=== PATIENT | female | born 1985 | race Asian ===

== ENCOUNTER 2016-11-22 15:48 | Emergency (ER) | payer BC ==
[~2016-11-22] VITALS: Ht 160 cm; Wt 57.4 kg
[~2016-11-22 15:48] MED LIST: PRENTAB26 PO
[2016-11-22 15:51] VITALS: Ht 160 cm; Wt 57.4 kg
[2016-11-22] MEDS ORDERED: ALUMINUM/MAGNESIUM SUSP 30 ML UDC PO STA (16:55)
--- NOTE | 2016-11-22 17:06 | EMERGENCY ROOM VISIT NOTE ---
History Report prepared by Cris: Lawrence Reed Under the Supervision of: Dr. Calvin River D.O. First contact with patient: 16:46 Chief Complaint: REFERRED BY DOCTOR Stated Complaint: CHEST PAIN, THROAT DISCOMFORT History of Present Illness The patient is a 31 year old female who presents to the Emergency Room with complaints of persistent discomfort in her throat for the past four days. She describes that discomfort as feeling like she is 'wearing a tight scarf.' She notes that it feels tight and swollen. The patient notes that she had cold-like symptoms for two weeks including cough, mucus production, sore throat and body aches. Starting today, the patient complained of chest pain that was coming and going. She describes it as an intense, sharp discomfort on her left side. She also complains of a low-grade fever and a stiff neck. The patient was at a walk- in clinic earlier today who recommended she present to the ED for further evaluation. She is currently prescribed Amoxicillin and Prednisone. She denies difficulty swallowing, abdominal pain, or back pain at this time. She notes that her son is currently in pre-school where Mumps and Pneumonia are currently going around. Source of History: patient Onset: four days Position: throat Quality: other (tight and swollen) Associated Symptoms: + chest pain, + cough, + fevers, + neck pain (stiff neck), + sorethroat, No abdominal pain, No back pain Note: Other associated symptoms: mucus production, body aches Denies: difficulty swallowing Review of Systems See HPI for pertinent positives & negatives. A total of 10 systems reviewed and were otherwise negative. Past Medical & Surgical Medical Problems: (1) Gestational diabetes (2) Lyme disease Family History FH: cancer Social History Smoking Status: Current Every Day Smoker Alcohol Use: occasionally Marital Status: Housing Status: lives with family Occupation Status: unemployed Current/Historical Medications Scheduled Amoxicillin (Amoxil), 875 MG PO BID Multivitamin (Multivitamin), 1 TAB PO DAILY Prednisone (Prednisone), 20 MG PO UD Allergies Coded Allergies: Shellfish Allergy (Unverified Allergy, Intermediate, HIVES, 12/11/14) Morphine (Unverified Allergy, Mild, Itchiness, 11/22/16) Uncoded Allergies: RED DYE #40 (Allergy, Intermediate, Severe Rash, 11/22/16) Physical Exam Vital Signs Date Time Temp Pulse Resp B/P Pulse Ox O2 Delivery O2 Flow Rate FiO2 11/22/16 23:04 37.2 75 18 122/78 99 11/22/16 23:04 75 18 122/78 99 Room Air 11/22/16 21:33 75 18 11/22/16 21:28 138/96 99 11/22/16 21:22 72 11/22/16 20:58 119/85 11/22/16 20:39 71 18 97 11/22/16 20:34 67 18 11/22/16 20:28 136/94 11/22/16 20:04 68 16 99 11/22/16 19:59 123/85 11/22/16 19:48 67 10 98 11/22/16 19:28 113/89 11/22/16 19:18 65 17 99 11/22/16 18:58 123/84 11/22/16 18:48 68 20 98 11/22/16 18:30 67 15 118/84 98 Room Air 11/22/16 18:28 118/84 11/22/16 18:18 71 16 97 11/22/16 18:00 66 16 117/79 98 Room Air 11/22/16 17:59 117/79 11/22/16 17:48 69 18 97 11/22/16 17:18 74 18 99 11/22/16 17:13 76 11/22/16 17:11 76 17 129/87 100 Room Air 11/22/16 17:10 129/87 11/22/16 17:09 100 Room Air 11/22/16 15:51 37.2 86 20 131/86 99 Room Air Physical Exam GENERAL: Patient is awake alert in no acute distress patient is resting comfortably and showing no signs of anxiety EYES: The conjunctivae are clear. The pupils are round and reactive. EARS, NOSE, MOUTH AND THROAT: The nose is without any evidence of any deformity. Mucous membranes are moist tongue is midline NECK: No tenderness over trachea or thyromegaly. No significant cervical adenopathy or salivary gland swelling. RESPIRATORY: Normal respiratory effort is noted there is no evidence of wheezing rhonchi or rales CARDIOVASCULAR: Regular rate and rhythm noted there no murmurs rubs or gallops normal S1 normal S2 GASTROINTESTINAL: The abdomen is soft. Bowel sounds are present in all quadrants. Abdomen is nontender MUSCULOSKELETAL/EXTREMITIES: There is no evidence of gross deformity full range of motion is noted in the hips and shoulders SKIN: There is no obvious evidence of any rash. There are no petechiae, pallor or cyanosis noted. NEUROLOGIC: Patient is awake alert and oriented x3 strength is symmetric patellar reflexes are 2+ bilaterally Medical Decision & Procedures ER Provider Diagnostic Interpretation: Radiology results as stated below per my review and radiologist interpretation: SOFT TISSUE NECK RADIOGRAPHS CLINICAL HISTORY: Sore throat. COMPARISON STUDY: No previous studies for comparison. FINDINGS: The epiglottis is normal. Prevertebral soft tissues are on remarkable. There may be mild enlargement of the lingual tonsils and adenoids. IMPRESSION: 1. Normal upper glottis. 2. Suspected mild enlargement of the tonsils and adenoids. Electronically signed by: Rashid Shah M.D. 11/22/2016 6:03 PM Dictated Date/Time: 11/22/2016 6:02 PM CHEST 2 VIEWS ROUTINE CLINICAL HISTORY: Chest pain. COMPARISON STUDY: Chest radiograph July 03, 2016. FINDINGS: Lung volumes are normal. Lungs are clear. There is no pneumothorax or pleural effusion. Cardiac size is normal. Mediastinal contours are normal. There is no evidence of pulmonary edema. IMPRESSION: No acute cardiopulmonary findings. Electronically signed by: Rashid Shah M.D. 11/22/2016 6:02 PM Dictated Date/Time: 11/22/2016 6:02 PM Laboratory Results 11/22/16 17:07 Red Blood Count 4.54, Mean Corpuscular Volume 89.9, Mean Corpuscular Hemoglobin 31.7, Mean Corpuscular Hemoglobin Concent 35.3, Mean Platelet Volume 11.2 11/22/16 17:07 Test 11/22/16 17:07 11/22/16 17:11 11/22/16 17:15 11/22/16 20:12 White Blood Count 4.74 K/uL (4.8-10.8) Red Blood Count 4.54 M/uL (4.2-5.4) Hemoglobin 14.4 g/dL (12.0-16.0) Hematocrit 40.8 % (37-47) Mean Corpuscular Volume 89.9 fL (80-100) Mean Corpuscular Hemoglobin 31.7 pg (25-34) Mean Corpuscular Hemoglobin Concent 35.3 g/dl (32-36) Platelet Count 165 K/uL (130-400) Mean Platelet Volume 11.2 fL (7.4-10.4) RDW Standard Deviation 39.5 fL (36.4-46.3) RDW Coefficient of Variation 11.9 % (11.5-14.5) Neutrophils % (Manual) 69.6 % Lymphocytes % (Manual) 18.8 % Variant Lymphocytes % (manual) 10.7 % Monocytes % (Manual) 0.9 % Neutrophils # (Manual) 3.30 K/uL (1.4-6.5) Total Absolute Neutrophils 3.30 K/uL (1.4-6.5) Lymphocytes # (Manual) 0.89 K/uL (1.2-3.4) Absolute Variant Lymphocytes 0.51 K/uL Total Absolute Lymphocytes 1.40 K/uL (1.2-3.4) Monocytes # (Manual) 0.04 K/uL (0.11-0.59) Red Blood Cell Morphology Unremarkable Erythrocyte Sedimentation Rate 25 mm/hr (0-21) Prothrombin Time 10.5 SECONDS (9.0-12.0) Prothromb Time International Ratio 1.0 (0.9-1.1) Activated Partial Thromboplast Time 30.3 SECONDS (21.0-31.0) Partial Thromboplastin Ratio 1.2 Anion Gap 7.0 mmol/L (3-11) Est Creatinine Clear Calc Drug Dose 82.0 ml/min Estimated GFR () 109.7 Estimated GFR (Non- 94.6 BUN/Creatinine Ratio 18.7 (10-20) Calcium Level 8.9 mg/dl (8.5-10.1) Magnesium Level 2.2 mg/dl (1.8-2.4) Total Bilirubin 0.3 mg/dl (0.2-1) Aspartate Amino Transf (AST/SGOT) 14 U/L (15-37) Alanine Aminotransferase (ALT/SGPT) 30 U/L (12-78) Alkaline Phosphatase 50 U/L (45-117) Total Creatine Kinase 95 U/L (26-192) Creatine Kinase MB 2.0 ng/ml (0.5-3.6) Creatine Kinase MB Ratio 2.1 (0-3.0) C-Reactive Protein < 0.29 mg/dl (0-0.29) Total Protein 8.3 gm/dl (6.4-8.2) Albumin 4.2 gm/dl (3.4-5.0) Globulin 4.1 gm/dl (2.5-4.0) Albumin/Globulin Ratio 1.0 (0.9-2) Thyroid Stimulating Hormone (TSH) 0.297 uIu/ml (0.300-4.500) Free Thyroxine 1.19 ng/dl (0.80-1.60) Human Chorionic Gonadotropin, Qual NEG (NEG) Bedside D-Dimer 117 ng/mlFEU (0-450) Urine Color YELLOW Urine Appearance CLEAR (CLEAR) Urine pH 5.5 (4.5-7.5) Urine Specific [place] 1.013 (1.000-1.030) Urine Protein NEG (NEG) Urine Glucose (UA) TRACE (NEG) Urine Ketones NEG (NEG) Urine Occult Blood NEG (NEG) Urine Nitrite NEG (NEG) Urine Bilirubin NEG (NEG) Urine Urobilinogen NEG (NEG) Urine Leukocyte Esterase NEG (NEG) Bedside Troponin I 0.000 ng/ml (0-0.045) Laboratory results per my review. Medications Administered Medications (Trade) Dose Ordered Sig/Irma Route Start Time Stop Time Status Last Admin Dose Admin Al Hydroxide/Mg Hydroxide (Maalox Susp) 30 ml NOW STAT PO 11/22/16 16:55 11/22/16 16:58 DC 11/22/16 17:14 30 ML ECG Indication: chest pain Rate (beats per minute): 77 Rhythm: normal sinus Findings: T-wave inversion (Anterior), no ectopy Comparison ECG Date: no prior available Change: Second EKG: Normal sinus rhythm with a rate of 86 no ectopy, persistence of anterior t-wave inversion noted. ED Course 1646: The patient was evaluated in room A2. A complete history and physical examination were performed. 1654: Ordered Maalox Susp 30 ml PO. 1950: At this time, I reevaluated the patient and she was resting. 2104: At this time, I discussed the patient's case with Dr. Pineda - Hospitalist [facility] and he agreed to accept the patient for further evaluation. Medical Decision Differential diagnosis: Etiologies such as cardiac ischemia, aortic dissection, pulmonary embolism, pneumonia, pneumothorax, musculoskeletal, infections, pericarditis, myocarditis , esophageal rupture, gastrointestinal, as well as others were entertained. Nursing notes reviewed. The patient is a 31-year-old female who presented to emergency department for an evaluation of chest pain. Patient describes upper chest discomfort which goes into her neck. She describes it as a squeezing sensation in her neck. She called her primary care physician and was sent to the emergency department for further evaluation. The patient was found have an abnormal EKG with anterior T- wave inversions. The patient had multiple troponin markers drawn which were not elevated. The patient was treated with Maalox in the emergency department. On subsequent reevaluation she was feeling somewhat improved. I discussed the patient's laboratory and radiographic studies with her. It is possible that this represents some abnormal swelling in the neck or possibly an upper respiratory tract infection. She was encouraged to rest and avoid any strenuous activity. She was also encouraged to follow-up with her primary care physician soon as possible. The patient was felt to be a possible candidate for inpatient management because of her abnormal EKG. She was evaluated in the emergency department by the [facility] hospitalist group. They felt that she would be a candidate for outpatient follow-up for this condition. The patient was encouraged to rest and avoid any strenuous activity. She was also encouraged to return to emergency department immediately if symptoms change worsen or the need arises. Consults Time Called: 2099 Consulting Physician: Dr. Pineda - [facility] [place]ed Call: 2104 t this time, I discussed the patient's case with Dr. Pineda and he agreed to accept the patient for further evaluation. Impression Primary Impression: Retrosternal chest pain Additional Impressions: Neck pain Abnormal EKG Scribe Attestation The scribe's documentation has been prepared under my direction and personally reviewed by me in its entirety. I confirm that the note above accurately reflects all work, treatment, procedures, and medical decision making performed by me. Departure Information Dispostion Being Evaluated By Hospitalist Referrals Juan Jose Pop MD (PCP) Problem Qualifiers
[2016-11-22 17:09] VITALS: O2SAT 100
[2016-11-22 17:30] LABS: URINE APPEARANCE CLEAR (CLEAR); URINE BILIRUBIN NEG (NEG); URINE COLOR YELLOW; URINE NITRITE NEG (NEG); URINE PH 5.5 (4.5-7.5); URINE SPECIFIC GRAVITY 1.013 (1.000-1.030); UROBILINOGEN NEG (NEG)
[2016-11-22 17:31] LABS: HEMATOCRIT 40.8 % (37-47); MEAN CELL VOLUME 89.9 fL (80-100); MEAN CORPUSCULAR HEMOGLOBIN 31.7 pg (25-34); MEAN CORPUSCULAR HGB CONC 35.3 g/dl (32-36); MEAN PLATELET VOLUME 11.2 fL (7.4-10.4); PLATELET COUNT 165 K/uL (130-400); RED BLOOD COUNT 4.54 M/uL (4.2-5.4); WHITE BLOOD COUNT 4.74 K/uL (4.8-10.8)
[2016-11-22 17:31] LABS: MANUAL MICROSCOPIC REQUIRED? NO; REVIEW REQ? NO
[2016-11-22 17:39] LABS: PARTIAL THROMBOPLASTIN RATIO 1.2; PROTHROMBIN TIME (PATIENT) 10.5 SECONDS (9.0-12.0)
[2016-11-22 17:53] LABS: ALT/SGPT 30 U/L (12-78); AST/SGOT 14 U/L (15-37); BLOOD UREA NITROGEN 16 mg/dl (7-18); BUN/CREATININE RATIO 18.7 (10-20); CALCIUM 8.9 mg/dl (8.5-10.1); CARBON DIOXIDE 28 mmol/L (21-32); CHLORIDE 104 mmol/L (98-107); CREATININE 0.83 mg/dl (0.60-1.20); GLUCOSE 160 mg/dl (70-99); MAGNESIUM 2.2 mg/dl (1.8-2.4); PREG INTERNAL NEGATIVE QC NEG CLEAR BACKGROUND; PREG INTERNAL POSITIVE QC POS CONTROL LINE; SODIUM 139 mmol/L (136-145)
[2016-11-22 17:56] LABS: ALKALINE PHOSPHATASE 50 U/L (45-117); C-REACTIVE PROTEIN < 0.29 mg/dl (0-0.29); CKMB/CK RATIO 2.1 (0-3.0)
--- NOTE | 2016-11-22 18:03 | DIAGNOSTIC IMAGING REPORT ---
CHEST 2 VIEWS ROUTINE CLINICAL HISTORY: Chest pain. COMPARISON STUDY: Chest radiograph July 03, 2016. FINDINGS: Lung volumes are normal. Lungs are clear. There is no pneumothorax or pleural effusion. Cardiac size is normal. Mediastinal contours are normal. There is no evidence of pulmonary edema. IMPRESSION: No acute cardiopulmonary findings. Electronically signed by: Rashid Shah M.D. 11/22/2016 6:02 PM Dictated Date/Time: 11/22/2016 6:02 PM
--- NOTE | 2016-11-22 18:05 | DIAGNOSTIC IMAGING REPORT ---
SOFT TISSUE NECK RADIOGRAPHS CLINICAL HISTORY: Sore throat. COMPARISON STUDY: No previous studies for comparison. FINDINGS: The epiglottis is normal. Prevertebral soft tissues are on remarkable. There may be mild enlargement of the lingual tonsils and adenoids. IMPRESSION: 1. Normal upper glottis. 2. Suspected mild enlargement of the tonsils and adenoids. Electronically signed by: Rashid Shah M.D. 11/22/2016 6:03 PM Dictated Date/Time: 11/22/2016 6:02 PM
[2016-11-22 18:31] LABS: COMPLETE YES; LYMPH ABS # 0.89 K/uL (1.2-3.4); LYMPHOCYTE % 18.8 %; NEUTROPHILS % 69.6 %; VARIANT LYM ABS # 0.51 K/uL; VARIANT LYMPHOCYTE % 10.7 %
[2016-11-22] MEDS ORDERED: PRED20TA PO (18:31)
[2016-11-22] MEDS ORDERED: AMOX875T3 PO (18:31)
[2016-11-22] MEDS ORDERED: MULT-506 PO (18:31)
[2016-11-22 19:55] LABS: THYROID STIMULATING HORMONE 0.297 uIu/ml (0.300-4.500)
--- NOTE | 2016-11-22 21:34 | History and Physical ---
History & Physical Date & Time of Service: Nov 22, 2016 at 21:13 Chief Complaint: Chest Pain, Throat Discomfort Primary Care Physician: Juan Jose Pop MD History of Present Illness Source: patient 2 weeks generally unwell. Started with sore throat. Feels she had the flu. 4 days ago started feeling throat swelling and harder to breath. Neck feels tight. Lots of nasal congestion. Body aches. Feels general better. No eye Sx. Right ear ringing now resolved. Feel full up b/l. Thorat no longer sore. No trismus. Low grade fevers throughout course of this. Chills and sweat Sun - Wed was the worst, feels this has got much better. She was having chest pain. Called as concerned that it may be due to abnormal reaction to medication. Chest pain had for a while. Not stressed when it happens. Left side of chest. No realationship to eating. No associated nausea or sweating. Severity 7/10. Onset 4pm, 5-10 seconds each episodes. Come on together. Came on at rest and . No shortness of breath during this episode. Went to walk in yesterday due to throat swelling, felt prednisone helped with this. Hard to eat it felt so swollen. No albuterol given. Amoxicillin given. had mumps vaccination when younger, no parotid swelling. Once episode of red dye theraflu, vomited and had rash after this ( on Wednesday night). Previous hear work up Previously workup under [facility] - due to chest and abnormal EKG. FHx - father liver (50's, had Hepattitis B ), mother cervical (late 30's), PGF Gastric ca. PGM - lung ca. PGF/PGM also had some form of cancer. 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) Allergies Coded Allergies: Shellfish Allergy (Unverified Allergy, Intermediate, HIVES, 12/11/14) Morphine (Unverified Allergy, Mild, Itchiness, 11/22/16) Uncoded Allergies: RED DYE #40 (Allergy, Intermediate, Severe Rash, 11/22/16) Home Medications Scheduled Amoxicillin (Amoxil), 875 MG PO BID Multivitamin (Multivitamin), 1 TAB PO DAILY Prednisone (Prednisone), 20 MG PO UD Review of Systems Constitutional: No chills, No fever Abdomen: No GI bleeding, No constipation, No diarrhea, No nausea, No pain, No vomiting Genitourinary - Female: No dysuria, No urinary frequency Neurologic: No balance problems, No memory loss, No numbness/tingling, No paralysis, No vertigo, No weakness Psychiatric: + anxiety, No depression symptoms Physical Exam Vital Signs Date Time Temp Pulse Resp B/P Pulse Ox O2 Delivery O2 Flow Rate FiO2 11/22/16 20:34 67 18 11/22/16 20:28 136/94 11/22/16 20:04 68 16 99 11/22/16 19:59 123/85 11/22/16 19:48 67 10 98 11/22/16 19:28 113/89 11/22/16 19:18 65 17 99 11/22/16 18:58 123/84 11/22/16 18:48 68 20 98 11/22/16 18:30 67 15 118/84 98 Room Air 11/22/16 18:28 118/84 11/22/16 18:18 71 16 97 11/22/16 18:00 66 16 117/79 98 Room Air 11/22/16 17:59 117/79 11/22/16 17:48 69 18 97 11/22/16 17:18 74 18 99 11/22/16 17:13 76 11/22/16 17:11 76 17 129/87 100 Room Air 11/22/16 17:10 129/87 11/22/16 17:09 100 Room Air 11/22/16 15:51 37.2 86 20 131/86 99 Room Air Diagnostics Laboratory Results Results Past 24 Hours Test 11/22/16 17:07 11/22/16 17:11 11/22/16 17:15 11/22/16 20:12 Range/Units White Blood Count 4.74 4.8-10.8 K/uL Red Blood Count 4.54 4.2-5.4 M/uL Hemoglobin 14.4 12.0-16.0 g/dL Hematocrit 40.8 37-47 % Mean Corpuscular Volume 89.9 80-100 fL Mean Corpuscular Hemoglobin 31.7 25-34 pg Mean Corpuscular Hemoglobin Concent 35.3 32-36 g/dl Platelet Count 165 130-400 K/uL Mean Platelet Volume 11.2 7.4-10.4 fL RDW Standard Deviation 39.5 36.4-46.3 fL RDW Coefficient of Variation 11.9 11.5-14.5 % Neutrophils % (Manual) 69.6 % Lymphocytes % (Manual) 18.8 % Variant Lymphocytes % (manual) 10.7 % Monocytes % (Manual) 0.9 % Neutrophils # (Manual) 3.30 1.4-6.5 K/uL Total Absolute Neutrophils 3.30 1.4-6.5 K/uL Lymphocytes # (Manual) 0.89 1.2-3.4 K/uL Absolute Variant Lymphocytes 0.51 K/uL Total Absolute Lymphocytes 1.40 1.2-3.4 K/uL Monocytes # (Manual) 0.04 0.11-0.59 K/uL Red Blood Cell Morphology Unremarkable Erythrocyte Sedimentation Rate 25 0-21 mm/hr Prothrombin Time 10.5 9.0-12.0 SECONDS Prothromb Time International Ratio 1.0 0.9-1.1 Activated Partial Thromboplast Time 30.3 21.0-31.0 SECONDS Partial Thromboplastin Ratio 1.2 Sodium Level 139 136-145 mmol/L Potassium Level 4.0 3.5-5.1 mmol/L Chloride Level 104 98-107 mmol/L Carbon Dioxide Level 28 21-32 mmol/L Anion Gap 7.0 3-11 mmol/L Blood Urea Nitrogen 16 7-18 mg/dl Creatinine 0.83 0.60-1.20 mg/dl Est Creatinine Clear Calc Drug Dose 82.0 ml/min Estimated GFR () 109.7 Estimated GFR (Non- 94.6 BUN/Creatinine Ratio 18.7 10-20 Random Glucose 160 70-99 mg/dl Calcium Level 8.9 8.5-10.1 mg/dl Magnesium Level 2.2 1.8-2.4 mg/dl Total Bilirubin 0.3 0.2-1 mg/dl Aspartate Amino Transf (AST/SGOT) 14 15-37 U/L Alanine Aminotransferase (ALT/SGPT) 30 12-78 U/L Alkaline Phosphatase 50 45-117 U/L Total Creatine Kinase 95 26-192 U/L Creatine Kinase MB 2.0 0.5-3.6 ng/ml Creatine Kinase MB Ratio 2.1 0-3.0 C-Reactive Protein < 0.29 0-0.29 mg/dl Total Protein 8.3 6.4-8.2 gm/dl Albumin 4.2 3.4-5.0 gm/dl Globulin 4.1 2.5-4.0 gm/dl Albumin/Globulin Ratio 1.0 0.9-2 Thyroid Stimulating Hormone (TSH) 0.297 0.300-4.500 uIu/ml Free Thyroxine 1.19 0.80-1.60 ng/dl Human Chorionic Gonadotropin, Qual NEG NEG Bedside D-Dimer 117 0-450 ng/mlFEU Bedside Troponin I 0.000 0.000 0-0.045 ng/ml Urine Color YELLOW Urine Appearance CLEAR CLEAR Urine pH 5.5 4.5-7.5 Urine Specific [place] 1.013 1.000-1.030 Urine Protein NEG NEG Urine Glucose (UA) TRACE NEG Urine Ketones NEG NEG Urine Occult Blood NEG NEG Urine Nitrite NEG NEG Urine Bilirubin NEG NEG Urine Urobilinogen NEG NEG Urine Leukocyte Esterase NEG NEG
[2016-11-22 23:04] VITALS: BP 122/78; PULSE 75; TEMP 37.2; O2SAT 99
--- NOTE | 2016-11-22 23:37 | Medical Consult ---
Consultation Date of Consultation: Nov 22, 2016. Attending Physician: Dr Lockwood Reason for Consultation: Assess for admission History of Present Illness Mrs Oenil was seen in the ER for chest pain. She was started on amoxicillin and prednisone yesterday for acute sinusitis, laryngitis and tracheitis. She had some chest pains today while walking so called the triage nurse as she was concerned it was a reaction to the medications. She was advised to go to the ER due to the chest pain. Her chest pain is the same as what she has had intermittently over the last few years. Her episode last 5-10 seconds and she gets them in spells with minutes in between. She can have them on exertion or at rest, no relationship to eating , sleeping or anxious thoughts. Severity 7/10 when they come on. Left side of chest. Onset today around 4pm. She denies any diaphoresis, nausea, shortness of breath associated with the pain. It does not radiate. Her pains today were no different from her chronic intermittent chest pains. She notes she was previous told she has an abnormal EKG and had an echocardiogram to investigate this which was reportedly normal. For the past 2 weeks she has felt generally unwell. Started with sore throat, nasal congestion, bilateral ear fullness, right ear ringing, chills, muscle aches and generally fatigued. "Feels like I have the flu". Generally her symptoms were getting better but 4 days ago started feeling throat swelling, harder to swallow and harder to breath (but not short of breath). She therefore went to her PCP walk in clinic and as above was started on amoxicillin and prednisone. She feels the prednisone has helped with the swelling but was concerned chest pain was related to medication to phoned triage and directed towards the ER as above. No eye Sx. Sore throat resolves. No trismus. Low grade fevers throughout course of this, but no high grade fevers. One episode of vomiting after taking Theraflu (thinks it was related to red dye) and had rash after this (on Wednesday night) but no vomiting or nausea since then. Fully immunized including mumps, no parotid swellings noted. FHx - father liver (50's, had Hepattitis B ), mother cervical (late 30's), PGF Gastric ca. PGM - lung ca. PGF/PGM also had some form of cancer. 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) Allergies Coded Allergies: Shellfish Allergy (Unverified Allergy, Intermediate, HIVES, 12/11/14) Morphine (Unverified Allergy, Mild, Itchiness, 11/22/16) Uncoded Allergies: RED DYE #40 (Allergy, Intermediate, Severe Rash, 11/22/16) Review of Systems Constitutional: No chills (resolved), No fever, No sweats, No weakness, No weight loss Eyes: No discharge, No eye pain, No redness, No worsening of vision ENT: No hearing loss Respiratory: No cough, No dyspnea at rest, No dyspnea on exertion, No shortness of breath, No sputum, No wheezing Cardiovascular: + chest pain (previous to ER), No PND, No claudication, No edema, No orthopnea, No palpitations Abdomen: No nausea, No pain Musculoskeletal: + muscle pain (SCM b/l), No joint pain Genitourinary - Female: No dysuria, No urinary frequency, No urinary urgency Neurologic: No memory loss, No numbness/tingling, No paralysis, No vertigo, No weakness Psychiatric: + anxiety, No depression symptoms, No insomnia Physical Exam Date Time Temp Pulse Resp B/P Pulse Ox O2 Delivery O2 Flow Rate FiO2 11/22/16 21:22 72 11/22/16 20:58 119/85 11/22/16 20:39 71 18 97 11/22/16 20:34 67 18 11/22/16 20:28 136/94 11/22/16 20:04 68 16 99 11/22/16 19:59 123/85 11/22/16 19:48 67 10 98 11/22/16 19:28 113/89 11/22/16 19:18 65 17 99 11/22/16 18:58 123/84 11/22/16 18:48 68 20 98 11/22/16 18:30 67 15 118/84 98 Room Air 11/22/16 18:28 118/84 11/22/16 18:18 71 16 97 11/22/16 18:00 66 16 117/79 98 Room Air 11/22/16 17:59 117/79 11/22/16 17:48 69 18 97 11/22/16 17:18 74 18 99 11/22/16 17:13 76 11/22/16 17:11 76 17 129/87 100 Room Air 11/22/16 17:10 129/87 11/22/16 17:09 100 Room Air 11/22/16 15:51 37.2 86 20 131/86 99 Room Air General Appearance: WD/WN, no apparent distress Head: normocephalic, atraumatic Eyes: normal inspection, PERRL, EOMI ENT: normal ENT inspection, hearing grossly normal, pharynx normal ( tonsilectomy notes, mildly erythematous) Neck: supple, no adenopathy, thyroid normal, no JVD, no carotid bruits, trachea midline Respiratory/Chest: chest non-tender, lungs clear, normal breath sounds, no respiratory distress, no accessory muscle use Cardiovascular: regular rate, rhythm, no edema, no gallop, no JVD, no murmur, normal peripheral pulses Abdomen/GI: normal bowel sounds, non tender, soft Extremities/Musculoskelatal: normal inspection, no calf tenderness, normal capillary refill, no pedal edema, normal range of motion, non-tender Neurologic/Psych: fur glosser II-XII nml as tested, no motor/sensory deficits, alert, normal mood/affect (appears anxious and hyperkinetic movements), oriented x 3 Skin: normal color, warm/dry, no rash Laboratory Results Last 24 Hours Test 11/22/16 17:07 11/22/16 17:11 11/22/16 17:15 11/22/16 20:12 White Blood Count 4.74 K/uL Red Blood Count 4.54 M/uL Hemoglobin 14.4 g/dL Hematocrit 40.8 % Mean Corpuscular Volume 89.9 fL Mean Corpuscular Hemoglobin 31.7 pg Mean Corpuscular Hemoglobin Concent 35.3 g/dl Platelet Count 165 K/uL Mean Platelet Volume 11.2 fL RDW Standard Deviation 39.5 fL RDW Coefficient of Variation 11.9 % Neutrophils % (Manual) 69.6 % Lymphocytes % (Manual) 18.8 % Variant Lymphocytes % (manual) 10.7 % Monocytes % (Manual) 0.9 % Neutrophils # (Manual) 3.30 K/uL Total Absolute Neutrophils 3.30 K/uL Lymphocytes # (Manual) 0.89 K/uL Absolute Variant Lymphocytes 0.51 K/uL Total Absolute Lymphocytes 1.40 K/uL Monocytes # (Manual) 0.04 K/uL Red Blood Cell Morphology Unremarkable Erythrocyte Sedimentation Rate 25 mm/hr Prothrombin Time 10.5 SECONDS Prothromb Time International Ratio 1.0 Activated Partial Thromboplast Time 30.3 SECONDS Partial Thromboplastin Ratio 1.2 Sodium Level 139 mmol/L Potassium Level 4.0 mmol/L Chloride Level 104 mmol/L Carbon Dioxide Level 28 mmol/L Anion Gap 7.0 mmol/L Blood Urea Nitrogen 16 mg/dl Creatinine 0.83 mg/dl Est Creatinine Clear Calc Drug Dose 82.0 ml/min Estimated GFR () 109.7 Estimated GFR (Non- 94.6 BUN/Creatinine Ratio 18.7 Random Glucose 160 mg/dl Calcium Level 8.9 mg/dl Magnesium Level 2.2 mg/dl Total Bilirubin 0.3 mg/dl Aspartate Amino Transf (AST/SGOT) 14 U/L Alanine Aminotransferase (ALT/SGPT) 30 U/L Alkaline Phosphatase 50 U/L Total Creatine Kinase 95 U/L Creatine Kinase MB 2.0 ng/ml Creatine Kinase MB Ratio 2.1 C-Reactive Protein < 0.29 mg/dl Total Protein 8.3 gm/dl Albumin 4.2 gm/dl Globulin 4.1 gm/dl Albumin/Globulin Ratio 1.0 Thyroid Stimulating Hormone (TSH) 0.297 uIu/ml Free Thyroxine 1.19 ng/dl Human Chorionic Gonadotropin, Qual NEG Bedside D-Dimer 117 ng/mlFEU Bedside Troponin I 0.000 ng/ml 0.000 ng/ml Urine Color YELLOW Urine Appearance CLEAR Urine pH 5.5 Urine Specific [place] 1.013 Urine Protein NEG Urine Glucose (UA) TRACE Urine Ketones NEG Urine Occult Blood NEG Urine Nitrite NEG Urine Bilirubin NEG Urine Urobilinogen NEG Urine Leukocyte Esterase NEG Assessment & Plan 31 year old female with generalized URI Sx and unwell for last 2 weeks but improving, seen in the ER for chest pain. Assessment: 1. Chronic intermittent chest pains 2. Viral URI Sx resolving 3. Anxiety 4. Subjective sternocleidomastoid swelling without any airway compromise Concern due to EKG showing TWI in V1-4. However on review of [facility] notes she has had this abnormal EKG since at least February 2014. At that time she was also have similar chest pains which come on intermittently which was the reason for the EKG at that time. She was investigated with echocardiogram. Echo (February 2015) showed normal LV size and systolic function with no regional wall abnormalities. Ejection fraction 60%. No LVH. Normal LV diastolic function. All other chambers normal in size and function. No significant valvular pathology. Normal pulmonary artery pressures. Normal study. Therefore in regards to her chest pain and abnormal EKG I recommend following up with her PCP in 1-2 days but there is no new concerning reason for admission at this time. Her TSH is just lower than the normal cut off however her free T4 is WNL. Serum bHCG is negative for . ESR mildly elevated at 25. CRP WNL. Electrolytes WNL. CK 95 (WNL). Initial troponin @ 0 and 5 hours were negative. Other slightly off labs were deemed not significant. She does have subjective neck tightness with perceived SCM swelling although there is nothing particularly notable on examination. It is bilateral without a distinctive lump therefore I suspect it may be muscle sprain or part of her anxiety. On quick review of the [facility] notes it does appear she has had a number of visits with possible anxiety related complaints ie. abdominal pains, arthralgias and she has been unable to run due to her recent illness which is her usual coping mechanism for this. Plan 1. Recommend discharge from the ER and to continue to take prednisone and amoxicillin as prescribed by her PCP 2. Follow up with PCP in 1-2 days for further management. Recommend repeat ESR in 1 month (when well). Additional Copies To Juan Jose Pop MD Assessment and Plan Attending Addendum: I have physically seen and examined this patient, have directed their medical care, have supervised the medical residents activities, and agree with the H&P as noted above, with the following changes: NONE ex The patient is awake, well-developed and adequately nourished, alert and oriented 3, normocephalic and atraumatic, lying in bed and in no acute distress. HEENT--PERRL, EOMI, mucous membranes and oropharynx moist. Neck--supple, no JVD or bruits, thyroid normal, trachea midline, no adenopathy. Heart--normal S1 and S2, no extra beats, no murmurs, rubs or gallops. Lungs--clear bilaterally with good air movement, no respiratory distress, no accessory muscle use. Abdomen--normal bowel sounds and soft, nontender and nondistended, no hernias or masses, no organomegaly. Extremities--no cyanosis, clubbing or edema. There are good distal pulses b/l. Dermatologic--normal skin turgor, normal color, warm and dry, no abnormal lymph nodes, no rash. Neurologic--cranial nerves II through XII grossly intact, motor and sensory examination normal. Rheumatologic--normal range of motion, nontender, muscles and joints. Psychiatric--normal affect. Assessment and Plan: Ex The patient will be discharged to home from the ER, will continue take the prednisone and amoxicillin as prescribed by her PCP and follow-up there for further management
[2016-11-26 17:58] LABS: MUMPS IgG VALUE 3.57; MUMPS VIRUS ANTIBODY IGM <1:20
[2017-02-26] MEDS ORDERED: MULT-506 PO (12:35)
[2017-03-08] MEDS ORDERED: ZNTT/150 PO (11:21)
[2017-03-08] MEDS ORDERED: PRLSR20 PO (11:21)
[2017-03-08] MEDS ORDERED: SUCR1TAB29 PO (11:21)
[2017-05-24] MEDS ORDERED: ESOM20CA PO (14:39)
== END 2016-11-22 23:06 | disposition home or self-care (01) ==
LOC: C.EDB 15:49 → C.EDA 23:06
DX: R07.2 Precordial pain (principal); M54.2 Cervicalgia; R94.31 Abnormal electrocardiogram [ECG] [EKG]; F17.200 Nicotine dependence, unspecified, uncomplicated

== ENCOUNTER → 2017-02-25 | Outpatient (CLI) | payer BC ==
[~2017-02-25] MED LIST changes: +AMOX875T3 PO; +ESOM20CA PO; +MULT-506 PO; +PRED20TA PO; -PRENTAB26 PO; +PRLSR20 PO; +SUCR1TAB29 PO; +ZNTT/150 PO
== END | disposition home or self-care (01) ==
LOC: C.PAPS 11:02
PROVIDERS: ATTEND Physician Assistant
DX: Z01.419 Encounter for gynecological examination (general) (routine) without abnormal findings (principal)

== ENCOUNTER → 2017-02-26 | Outpatient (CLI) | payer BC ==
--- NOTE | 2017-02-26 08:51 | DIAGNOSTIC IMAGING REPORT ---
RIGHT WRIST MIN 3 VIEWS ROUTINE CLINICAL HISTORY: Acute right wrist pain and decreased range of motion following injury. COMPARISON: None FINDINGS: Alignment of the right wrist is anatomic. There is no fracture. There is mild joint space narrowing of the radiocarpal articulation. Otherwise, no abnormalities are identified. IMPRESSION: 1. No acute fracture or dislocation of the right wrist. 2. Mild radiocarpal joint space narrowing. Electronically signed by: Rashid Shah M.D. 02/26/2017 8:50 AM Dictated Date/Time: 02/26/2017 8:49 AM
== END | disposition home or self-care (01) ==
LOC: C.RAD1850 08:38
PROVIDERS: ATTEND Nurse Practitioner Family
DX: M79.644 Pain in right finger(s) (principal); M25.531 Pain in right wrist

== ENCOUNTER → 2017-03-08 | Day surgery (SDC) | payer BC ==
[2017-02-26 12:35] VITALS: BMI 22.0
[~2017-03-08] VITALS: Ht 160 cm; Wt 56.8 kg
[~2017-03-08] MED LIST changes: -AMOX875T3 PO; +LIDOCAINE HCL 2% 2 ML VIAL (20MG/ML) ONE; -PRED20TA PO; +PROPOFOL IV EMULSION 10 MG/ML 20 ML VIAL IV ONE; +SODIUM CHLORIDE 0.9% 500ML 500 ML IV ONE
[2017-03-08 11:24] VITALS: Ht 160 cm; Wt 56.8 kg
--- NOTE | 2017-03-08 11:45 | Endo History and Physical ---
History & Physical Date of Service: Mar 08, 2017. Chief Complaint: DYSPHAGIA, REFLUX Referring Physician: DR Carlos Eduardo OROPEZA History of Present Illness 31 yo female who presents for EGD secondary to GERD and dysphagia. Past Surgical History Hx Cardiac Surgery: No Hx Internal Defibrillator: No Hx Pacemaker: No Hx Abdominal Surgery: No Hx of Implantable Prosthesis: No Hx Post-Op Nausea and Vomiting: No Hx Cancer Surgery: No Hx Thoracic Surgery: No Hx Orthopedic: No Hx Urinary Tract Surgery: No Family History Colon CA Social History Smoking Status: Former Smoker Hx Substance Use: No Hx Alcohol Use: Yes (OCCASIONALLY) Allergies Coded Allergies: Shellfish Allergy (Verified Allergy, Intermediate, HIVES, 03/08/17) Morphine (Verified Allergy, Mild, Itchiness, 03/08/17) BEE STING (Verified Allergy, Unknown, SWELLING, 02/26/17) Pantoprazole (Verified Allergy, Unknown, TURNS BRIGHT RED, 02/26/17) Tramadol (Verified Allergy, Unknown, VOMITTING, 02/26/17) Uncoded Allergies: RED DYE #40 (Allergy, Intermediate, Severe Rash, 11/22/16) Current Medications Reported Home Medications Medications Dose Route/Sig Max Daily Dose Days Date Category Zantac (Ranitidine HCl) 150 Mg Tab 150 Mg PO BID PRN 03/08/17 Reported Carafate (Sucralfate) 1 Gm Tab 1 Tab PO QID 30 03/08/17 Reported Prilosec (Omeprazole) 20 Mg Capcr 20 Mg PO BID 03/08/17 Reported Multivitamin (Multivitamins) Tab 1 Tab PO QAM 02/26/17 Reported Vital Signs Weight (Kilograms): 56.82 Height (Feet): 5 Height (Inches): 3 Date Time Temp Pulse Resp B/P (MAP) Pulse Ox O2 Delivery O2 Flow Rate FiO2 03/08/17 11:22 36.9 63 18 119/76 (90) 100 Room Air Physical Exam General Appearance: WD/WN, no apparent distress Respiratory/Chest: Auscultation: breath sounds normal Cardiovascular: Heart Auscultation: RRR Abdomen: Bowel Sounds: normal Inspection & Palpation: soft, non-distended, no tenderness, guarding & rebound Assessment and Plan Assessment: 31 yo female who presents for EGD secondary to GERD and dysphagia. Plan: Proceed with EGD.
--- NOTE | 2017-03-08 12:36 | GI REPORT ---
Procedure Date: 03/08/2017 12:21 PM Procedure: Upper GI endoscopy Indications: Dysphagia, Suspected gastro-esophageal reflux disease Medicines: Monitored Anesthesia Care Complications: No immediate complications. Estimated Blood Loss: Estimated blood loss: none. Procedure: Pre-Anesthesia Assessment: - Prior to the procedure, a History and Physical was performed, and patient medications and allergies were reviewed. The patient's tolerance of previous anesthesia was also reviewed. The risks and benefits of the procedure and the sedation options and risks were discussed with the patient. All questions were answered, and informed consent was obtained. Prior Anticoagulants: The patient has taken no previous anticoagulant or antiplatelet agents. ASA Grade Assessment: I - A normal, healthy patient. After reviewing the risks and benefits, the patient was deemed in satisfactory condition to undergo the procedure. After obtaining informed consent, the endoscope was passed under direct vision. Throughout the procedure, the patient's blood pressure, pulse, and oxygen saturations were monitored continuously. The scope was introduced through the mouth, and advanced to the second part of duodenum. The upper GI endoscopy was accomplished without difficulty. The patient tolerated the procedure well. Findings: Localized candidiasis was found in the upper third of the esophagus. Cells for cytology were obtained by brushing. A single 3 mm mucosal nodule with a localized distribution was found at the gastroesophageal junction. Biopsies were taken with a cold forceps for histology. A small hiatus hernia was present. Localized mild inflammation characterized by erythema was found in the gastric antrum. Biopsies were taken with a cold forceps for histology. The examined duodenum was normal. Biopsies for histology were taken with a cold forceps for evaluation of celiac disease. Impression: - Monilial esophagitis. Cells for cytology obtained. - Mucosal nodule found in the esophagus. Biopsied. - Small hiatus hernia. - Gastritis. Biopsied. - Normal examined duodenum. Biopsied. Recommendation: - Resume previous diet. - Continue present medications. - Await pathology results. - Return to my office as previously scheduled. Mitch Hartmann DO 03/08/2017 12:36:26 PM This report has been signed electronically. Note Initiated On: 03/08/2017 12:21 PM I attest to the content of the Intraoperative Record and orders documented therein, exceptions below
[2017-03-08 13:01] VITALS: BP 110/80; PULSE 72; O2SAT 99
--- NOTE | 2017-03-08 13:07 | Discharge Instructions ---
Endoscopy Patient Instructions Date / Procedure(s) Performed Mar 08, 2017. EGD Allergy Information Coded Allergies: Shellfish Allergy (Verified Allergy, Intermediate, HIVES, 03/08/17) Morphine (Verified Allergy, Mild, Itchiness, 03/08/17) BEE STING (Verified Allergy, Unknown, SWELLING, 02/26/17) Pantoprazole (Verified Allergy, Unknown, TURNS BRIGHT RED, 02/26/17) Tramadol (Verified Allergy, Unknown, VOMITTING, 02/26/17) Uncoded Allergies: RED DYE #40 (Allergy, Intermediate, Severe Rash, 11/22/16) Discharge Date / Findings Mar 08, 2017. Gastritis s/p biopsies Hiatal hernia Esophageal brushings Esophageal biopsies Duodenal biopsies Medication Instructions Stopped Medication(s): ZANTAC LAST DOSE 03/05/17 PRILOSEC LAST DOSE CARAFATE LAST DOSE 02/22/17 OK to resume all medications today as prescribed Medications Dose Route/Sig Max Daily Dose Days Date Category Zantac (Ranitidine HCl) 150 Mg Tab 150 Mg PO BID PRN 03/08/17 Reported Carafate (Sucralfate) 1 Gm Tab 1 Tab PO QID 30 03/08/17 Reported Prilosec (Omeprazole) 20 Mg Capcr 20 Mg PO BID 03/08/17 Reported Multivitamin (Multivitamins) Tab 1 Tab PO QAM 02/26/17 Reported Provider Instructions Activity Restrictions - No exercising or heavy lifting for 24 hours. - Do not drink alcohol the day of the procedure. - Do not drive a car or operate machinery until the day after the procedure. - Do not make any important decisions or sign important papers in 24 hours after the procedure. Following Day: - Return to full activity which may include returning to work/school. Diet Start your diet with liquids and light foods (jello, soup, juice, toast). Then eat your usual diet if not nauseated. Treatment For Common After Affects For mild abdominal pain, bloating, or excessive gas: - Rest - Eat lightly - Lie on right side Follow-Up Information Follow-up with DR Carlos Eduardo OROPEZA as scheduled Anesthesia Information What You Should Know You have had a procedure that required some medicine to reduce anxiety and discomfort. This treatment is called moderate sedation. After receiving the treatment, you may be sleepy, but you will be able to breathe on your own. The effects of the treatment may last for several hours. Follow these instructions along with Activity/Diet recommendations noted above: * Do NOT do anything where dizziness or clumsiness would be dangerous. * Rest quietly at home today, then you can be up and about tomorrow. * Have a responsible person stay with you the rest of today. * You may have had an I.V. today. If so, you may take the dressing off later today. Recommendations Call your doctor if: * Trouble breathing * Continuous vomiting for more than 24 hours * Temperature above 101 degrees * Severe abdominal pain or bloating * Pain not relieved by pain medicine ordered * There is increased drainage or redness from any incision * A large amount of rectal bleeding greater than 2-3 tablespoons. (If you had a polyp/s removed or have hemorrhoids, a small amount of blood - from the rectum is to be expected.) * You have any unanswered questions or concerns. IN THE EVENT OF A SERIOUS EMERGENCY, GO TO THE NEAREST EMERGENCY ROOM Your discharge instructions were prepared by provider Mitch Hartmann. Patient Instructions Signature Page Tracey Oneil Patient (or Guardian) Signature/Date: I have read and understand the instructions given to me by my caregivers. Caregiver/RN/Doctor Signature/Date: The above-named patient and/or guardian has received patient instructions on this date. + Original Patient Signature Page (only) stays with chart. Please make copy for patient.
--- NOTE | 2017-03-08 13:12 | Anesthesiology Progress Note ---
Anesthesia Post Op Note Date & Time Mar 08, 2017 at 13:11 Vital Signs Pain Intensity: 0 Vital Signs Past 12 Hours Date Time Temp Pulse Resp B/P (MAP) Pulse Ox O2 Delivery O2 Flow Rate FiO2 03/08/17 13:01 72 16 110/80 (90) 99 Room Air 03/08/17 12:46 72 16 117/83 (94) 99 Room Air 03/08/17 12:31 62 16 115/82 (93) 100 Room Air 03/08/17 11:22 36.9 63 18 119/76 (90) 100 Room Air Notes Mental Status: alert / awake / arousable, participated in evaluation Pt Amnestic to Procedure: Yes Nausea / Vomiting: adequately controlled Pain: adequately controlled Airway Patency, RR, SpO2: stable & adequate BP & HR: stable & adequate Hydration State: stable & adequate Anesthetic Complications: no major complications apparent
== END | disposition home or self-care (01) ==
LOC: C.GI 11:06
PROVIDERS: ATTEND Internal Medicine
DX: R13.10 Dysphagia, unspecified (principal); K20.8 Other esophagitis; K22.8 Other specified diseases of esophagus; K44.9 Diaphragmatic hernia without obstruction or gangrene; K29.70 Gastritis, unspecified, without bleeding; Z88.5 Allergy status to narcotic agent; Z98.818 Other dental procedure status; Z90.89 Acquired absence of other organs; Z87.891 Personal history of nicotine dependence; Z80.0 Family history of malignant neoplasm of digestive organs; Z91.013 Allergy to seafood

== ENCOUNTER → 2017-05-17 | Outpatient (CLI) | payer BC ==
[~2017-05-17] MED LIST changes: -LIDOCAINE HCL 2% 2 ML VIAL (20MG/ML) ONE; -PROPOFOL IV EMULSION 10 MG/ML 20 ML VIAL IV ONE; -SODIUM CHLORIDE 0.9% 500ML 500 ML IV ONE
--- NOTE | 2017-05-17 15:24 | MAMMOGRAPHY REPORT ---
BILATERAL DIGITAL DIAGNOSTIC MAMMOGRAM TOMOSYNTHESIS WITH CAD AND TARGETED BILATERAL ULTRASOUND: 05/17 CLINICAL HISTORY: 31-year-old woman who recently noticed bilateral spontaneous nipple discharge, most ly dried and whitish on her nipples or bra. Also wrinkling along the lower outer anterior aspect of each breast. Family history of breast cancer = paternal aunt. Baseline exam. TECHNIQUE: Bilateral CC and MLO 2-D and tomosynthesis images, spot magnification CC and ML views of e ach breast were obtained. Current study was also evaluated with a Computer Aided Detection (CAD) sys tem. COMPARISON: No prior exams were available for comparison. BREAST COMPOSITION: The tissue of both breasts is heterogeneously dense, which may obscure small mas ses. FINDINGS: There are scattered and loosely grouped round and punctate benign-appearing microcalcifica tions bilaterally, best seen on the spot magnification views. These most likely represent benign fib rocystic changes. There is no evidence of a suspicious grouping or cluster of microcalcifications in either breast. No obvious mass, focal area of architectural distortion or asymmetry. Targeted ultrasound was performed in each periareolar and retroareolar breast as well as the lower ou ter quadrants in the area of described by the patient. There is mild benign duct ectasia in the suba reolar aspect of each breast. No focally dilated duct or evidence of an intraductal mass. Overall, no suspicious solid or cystic mass is identified. IMPRESSION: ACR BI-RADS CATEGORY 2: BENIGN, TARGETED ULTRASOUND ACR BI-RADS CATEGORY 2: BENIGN 1. There is no mammographic or targeted sonographic evidence of malignancy in the breasts. 2. No suspicious mammographic or sonographic abnormality is seen to explain the few drops of whitish nipple discharge from each breast. Therefore, clinical follow-up is recommended and cytology of the fluid may be useful. If the problem persists and/or increases, may consider consultation with a carroll ast surgeon. Otherwise, recommend routine screening mammography beginning at age 40. The patient has been verbally notified of the results. Approximately 10% of breast cancers are not detected with mammography. A negative mammographic report should not delay biopsy if a clinically suggestive mass is present. Keshia Pina M.D. ay/:05/17/2017 14:56:11 Livestock Speculator: Betty CASTILLO)(Dee), [facility] letter sent: Normal 1/2 BI-RADS Code: ACR BI-RADS Category 2: Benign Ultrasound BI-RADS: ACR BI-RADS Category 2: Benign
== END | disposition home or self-care (01) ==
LOC: C.MAMM 13:40
PROVIDERS: ATTEND Nurse Practitioner Family
DX: N64.52 Nipple discharge (principal); R23.4 Changes in skin texture; Z80.3 Family history of malignant neoplasm of breast

== ENCOUNTER → 2017-06-23 | Day surgery (SDC) | payer BC ==
[2017-05-24 14:40] VITALS: Ht 160 cm; Wt 54.5 kg
[~2017-06-23] VITALS: Ht 160 cm; Wt 54.5 kg
[~2017-06-23] MED LIST changes: -PRLSR20 PO; -SUCR1TAB29 PO; -ZNTT/150 PO
== END | disposition home or self-care (01) ==
LOC: EDSTATUS 12:30 → C.PAT 15:32
PROVIDERS: ATTEND Obstetrics & Gynecology
DX: Z30.2 Encounter for sterilization (principal); Z53.9 Procedure and treatment not carried out, unspecified reason

== ENCOUNTER → 2017-10-27 | Outpatient (CLI) | payer BC ==
[2017-10-27 13:39] LABS: BASO % 0.1 %; BASO ABS # 0.01 K/uL (0-0.2); EOS % 0.6 %; EOS ABS # 0.05 K/uL (0-0.5); HEMATOCRIT 39.8 % (37-47); HEMOGLOBIN 13.7 g/dL (12.0-16.0); IG# 0.02 K/uL (0.00-0.02); LYMPH % 19.5 %; LYMPH ABS # 1.61 K/uL (1.2-3.4); MEAN CELL VOLUME 93.6 fL (80-100); MEAN CORPUSCULAR HEMOGLOBIN 32.2 pg (25-34); MEAN CORPUSCULAR HGB CONC 34.4 g/dl (32-36); MEAN PLATELET VOLUME 11.9 fL (7.4-10.4); MONO % 5.6 %; MONO ABS # 0.46 K/uL (0.11-0.59); NEUT ABS # 6.12 K/uL (1.4-6.5); PLATELET COUNT 191 K/uL (130-400); RED CELL DISTRIBUTION WIDTH CV 12.8 % (11.5-14.5); RED CELL DISTRIBUTION WIDTH SD 43.2 fL (36.4-46.3); WHITE BLOOD COUNT 8.27 K/uL (4.8-10.8)
[2017-10-27 14:08] LABS: ALBUMIN 4.2 gm/dl (3.4-5.0); ALKALINE PHOSPHATASE 59 U/L (45-117); ALT/SGPT 31 U/L (12-78); AST/SGOT 27 U/L (15-37); BLOOD UREA NITROGEN 17 mg/dl (7-18); CALCIUM 9.5 mg/dl (8.5-10.1); CARBON DIOXIDE 26 mmol/L (21-32); CREATININE 0.87 mg/dl (0.60-1.20); GLUCOSE 88 mg/dl (70-99); POTASSIUM 3.7 mmol/L (3.5-5.1); SODIUM 135 mmol/L (136-145); TOTAL PROTEIN 7.9 gm/dl (6.4-8.2)
== END | disposition home or self-care (01) ==
LOC: C.LABBC 11:11
PROVIDERS: ATTEND Registered Nurse
DX: R10.31 Right lower quadrant pain (principal); R10.32 Left lower quadrant pain; R19.5 Other fecal abnormalities

== ENCOUNTER → 2017-11-01 | Day surgery (SDC) | payer BC ==
[2017-10-15 10:32] VITALS: Ht 160 cm; Wt 56.8 kg
[~2017-11-01] VITALS: Ht 160 cm; Wt 56.8 kg
[~2017-11-01] MED LIST changes: +LIDOCAINE HCL 2% 2 ML VIAL (20MG/ML) ONE; +MIDAZOLAM HCL 1 MG/ML 2ML VIAL ONE; +PROPOFOL IV EMULSION 10 MG/ML 20 ML VIAL IV ONE; +SODIUM CHLORIDE 0.9% 500ML 500 ML IV ONE
[2017-11-01 13:22] VITALS: TEMP 36.8
--- NOTE | 2017-11-01 13:30 | Endo History and Physical ---
History & Physical Date of Service: Nov 01, 2017. Chief Complaint: Kinsey's Referring Physician: Dr. 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 Past Surgical History Hx Cardiac Surgery: No Hx Internal Defibrillator: No Hx Pacemaker: No Hx Abdominal Surgery: No Hx of Implantable Prosthesis: No Hx Post-Op Nausea and Vomiting: No Hx Cancer Surgery: No Hx Thoracic Surgery: No Hx Orthopedic: No Hx Urinary Tract Surgery: No Family History Colon CA Social History Smoking Status: Former Smoker Hx Substance Use: No Hx Alcohol Use: Yes (OCCASIONAL/SOCIAL) Allergies Coded Allergies: Shellfish Allergy (Verified Allergy, Intermediate, HIVES, 11/01/17) Morphine (Verified Allergy, Mild, Itchiness, 11/01/17) BEE STING (Verified Allergy, Unknown, SWELLING, 11/01/17) Pantoprazole (Verified Allergy, Unknown, TURNS BRIGHT RED, 11/01/17) Tramadol (Verified Allergy, Unknown, VOMITTING, 11/01/17) Uncoded Allergies: RED DYE #40 (Allergy, Intermediate, Severe Rash, 11/22/16) Current Medications Reported Home Medications Medications Dose Route/Sig Max Daily Dose Days Date Category Nexium (Esomeprazole Magnesium) 20 Mg Capcr 20 Mg PO QAM 05/24/17 Reported Multivitamin (Multivitamins) Tab 1 Tab PO QAM 02/26/17 Reported Vital Signs Weight (Kilograms): 56.82 Height (Feet): 5 Height (Inches): 3 Date Time Temp Pulse Resp B/P (MAP) Pulse Ox O2 Delivery O2 Flow Rate FiO2 11/01/17 13:22 36.8 84 18 122/82 (95) 100 Room Air Physical Exam General Appearance: WD/WN, no apparent distress Respiratory/Chest: Auscultation: breath sounds normal Cardiovascular: Heart Auscultation: RRR Abdomen: Bowel Sounds: normal Inspection & Palpation: soft, non-distended, no tenderness, guarding & rebound Assessment and Plan Assessment: 32 yo female who presents for 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 Plan: Proceed with EGD.
--- NOTE | 2017-11-01 13:57 | GI REPORT ---
Procedure Date: 11/01/2017 1:36 PM Procedure: Upper GI endoscopy Indications: Follow-up of Kinsey's esophagus Medicines: Monitored Anesthesia Care Complications: No immediate complications. Estimated Blood Loss: Estimated blood loss: none. Procedure: Pre-Anesthesia Assessment: - Prior to the procedure, a History and Physical was performed, and patient medications and allergies were reviewed. The patient's tolerance of previous anesthesia was also reviewed. The risks and benefits of the procedure and the sedation options and risks were discussed with the patient. All questions were answered, and informed consent was obtained. Prior Anticoagulants: The patient has taken no previous anticoagulant or antiplatelet agents. ASA Grade Assessment: II - A patient with mild systemic disease. After reviewing the risks and benefits, the patient was deemed in satisfactory condition to undergo the procedure. After obtaining informed consent, the endoscope was passed under direct vision. Throughout the procedure, the patient's blood pressure, pulse, and oxygen saturations were monitored continuously. The scope was introduced through the mouth, and advanced to the second part of duodenum. The upper GI endoscopy was accomplished without difficulty. The patient tolerated the procedure well. Findings: There were esophageal mucosal changes consistent with short-segment Kinsey's esophagus present at the gastroesophageal junction. The maximum longitudinal extent of these mucosal changes was 2 cm in length. Mucosa was biopsied with a cold forceps for histology. One specimen bottle was sent to pathology. The stomach was normal. The examined duodenum was normal. Impression: - Esophageal mucosal changes consistent with short-segment Kinsey's esophagus. Biopsied. - Normal stomach. - Normal examined duodenum. Recommendation: - Resume previous diet. - Continue present medications. - Await pathology results. - Return to primary care physician as previously scheduled. Mitch Hartmann, DO 11/01/2017 1:56:49 PM This report has been signed electronically. Note Initiated On: 11/01/2017 1:36 PM I attest to the content of the Intraoperative Record and orders documented therein, exceptions below
--- NOTE | 2017-11-01 13:58 | Discharge Instructions ---
Endoscopy Patient Instructions Date / Procedure(s) Performed Nov 01, 2017. EGD Allergy Information Coded Allergies: Shellfish Allergy (Verified Allergy, Intermediate, HIVES, 11/01/17) Morphine (Verified Allergy, Mild, Itchiness, 11/01/17) BEE STING (Verified Allergy, Unknown, SWELLING, 11/01/17) Pantoprazole (Verified Allergy, Unknown, TURNS BRIGHT RED, 11/01/17) Tramadol (Verified Allergy, Unknown, VOMITTING, 11/01/17) Uncoded Allergies: RED DYE #40 (Allergy, Intermediate, Severe Rash, 11/22/16) Discharge Date / Findings Nov 01, 2017. Kinsey's Esophagus s/p biopsies Medication Instructions OK to resume all medications today as prescribed Reported Home Medications Medications Dose Route/Sig Max Daily Dose Days Date Category Nexium (Esomeprazole Magnesium) 20 Mg Capcr 20 Mg PO QAM 05/24/17 Reported Multivitamin (Multivitamins) Tab 1 Tab PO QAM 02/26/17 Reported Provider Instructions Activity Restrictions - No exercising or heavy lifting for 24 hours. - Do not drink alcohol the day of the procedure. - Do not drive a car or operate machinery until the day after the procedure. - Do not make any important decisions or sign important papers in 24 hours after the procedure. Following Day: - Return to full activity which may include returning to work/school. Diet Start your diet with liquids and light foods (jello, soup, juice, toast). Then eat your usual diet if not nauseated. Treatment For Common After Affects For mild abdominal pain, bloating, or excessive gas: - Rest - Eat lightly - Lie on right side Follow-Up Information Follow-up with Dr. Juan Jose Pop as scheduled Anesthesia Information What You Should Know You have had a procedure that required some medicine to reduce anxiety and discomfort. This treatment is called moderate sedation. After receiving the treatment, you may be sleepy, but you will be able to breathe on your own. The effects of the treatment may last for several hours. Follow these instructions along with Activity/Diet recommendations noted above: * Do NOT do anything where dizziness or clumsiness would be dangerous. * Rest quietly at home today, then you can be up and about tomorrow. * Have a responsible person stay with you the rest of today. * You may have had an I.V. today. If so, you may take the dressing off later today. Recommendations Call your doctor if: * Trouble breathing * Continuous vomiting for more than 24 hours * Temperature above 101 degrees * Severe abdominal pain or bloating * Pain not relieved by pain medicine ordered * There is increased drainage or redness from any incision * A large amount of rectal bleeding greater than 2-3 tablespoons. (If you had a polyp/s removed or have hemorrhoids, a small amount of blood - from the rectum is to be expected.) * You have any unanswered questions or concerns. IN THE EVENT OF A SERIOUS EMERGENCY, GO TO THE NEAREST EMERGENCY ROOM Your discharge instructions were prepared by provider Mitch Hartmann. Patient Instructions Signature Page Tracey Oneil Patient (or Guardian) Signature/Date: I have read and understand the instructions given to me by my caregivers. Caregiver/RN/Doctor Signature/Date: The above-named patient and/or guardian has received patient instructions on this date. + Original Patient Signature Page (only) stays with chart. Please make copy for patient.
--- NOTE | 2017-11-01 14:05 | Anesthesiology Progress Note ---
Anesthesia Post Op Note Date & Time Nov 01, 2017 at 14:05 Vital Signs Pain Intensity: 0 Vital Signs Past 12 Hours Date Time Temp Pulse Resp B/P (MAP) Pulse Ox O2 Delivery O2 Flow Rate FiO2 11/01/17 13:54 72 16 104/67 (79) 100 Room Air 11/01/17 13:22 36.8 84 18 122/82 (95) 100 Room Air Notes Mental Status: alert / awake / arousable, participated in evaluation Pt Amnestic to Procedure: Yes Nausea / Vomiting: adequately controlled Pain: adequately controlled Airway Patency, RR, SpO2: stable & adequate BP & HR: stable & adequate Hydration State: stable & adequate Anesthetic Complications: no major complications apparent
[2017-11-01 14:24] VITALS: BP 119/91; PULSE 67; O2SAT 100
== END | disposition home or self-care (01) ==
LOC: C.GI 12:35
PROVIDERS: ATTEND Internal Medicine
DX: Z09 Encounter for follow-up examination after completed treatment for conditions other than malignant neoplasm (principal); Z88.5 Allergy status to narcotic agent; Z88.1 Allergy status to other antibiotic agents; Z87.891 Personal history of nicotine dependence; Z91.013 Allergy to seafood; Z80.0 Family history of malignant neoplasm of digestive organs

== ENCOUNTER → 2017-11-05 | Outpatient (CLI) | payer BC ==
[~2017-11-05] MED LIST changes: -LIDOCAINE HCL 2% 2 ML VIAL (20MG/ML) ONE; -MIDAZOLAM HCL 1 MG/ML 2ML VIAL ONE; -PROPOFOL IV EMULSION 10 MG/ML 20 ML VIAL IV ONE; -SODIUM CHLORIDE 0.9% 500ML 500 ML IV ONE
== END | disposition home or self-care (01) ==
LOC: C.LABBC 09:25
PROVIDERS: ATTEND Registered Nurse
DX: R10.31 Right lower quadrant pain (principal); R10.32 Left lower quadrant pain

== ENCOUNTER → 2018-01-25 | Outpatient (CLI) | payer BC ==
--- NOTE | 2018-01-25 13:22 | DIAGNOSTIC IMAGING REPORT ---
L TIBIA/FIBULA 2 VIEWS CLINICAL HISTORY: 32 years-old Female presenting with LEFT LOWER LEG PAIN. TECHNIQUE: Frontal and lateral views of the left lower leg were obtained. COMPARISON: None. FINDINGS: Knee joint and ankle mortise congruent. No gross evidence of medullary sclerosis. No periosteal reaction or osseous erosion. No acute fracture or malalignment. No advanced degenerative change. No radiographic soft tissue abnormality. IMPRESSION: No acute osseous injury. MR is more sensitive for the diagnosis of stress fracture or stress reaction if this is of clinical concern. Electronically signed by: Ming Gomez M.D. 01/25/2018 1:21 PM Dictated Date/Time: 01/25/2018 1:20 PM
== END | disposition home or self-care (01) ==
LOC: C.RDSM 14:56
PROVIDERS: ATTEND Internal Medicine
DX: M79.662 Pain in left lower leg (principal)

== ENCOUNTER 2021-07-03 01:41 | Inpatient (IN) ==
[2021-07-03] MEDS ORDERED: OXYTOCIN 30 UNITS/500 ML BAG IV PRN ×3 (04:03→20:08)
[2021-07-03 04:37] LABS: Hematocrit (blood only) 36.5 % (37-47); Hemoglobin 11.9 g/dL (12.0-16.0); Mean Corpuscular Hgb Conc 32.6 g/dL (32-36); Mean Corpuscular Volume 88.8 fL (80-100); Mean Platelet Volume 11.2 fL (7.4-10.4); Platelet Count 164 K/uL (130-400); RDW Coefficient of Variation 14.3 % (11.5-14.5); RDW Standard Deviation 46.1 fL (36.4-46.3); Red Blood Count 4.11 M/uL (4.2-5.4); White Blood Count 9.62 K/uL (4.8-10.8)
[2021-07-03] MEDS: LACTATED RINGER'S 1,000 ML IV PRN ×2 (10:25→15:35)
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
[2021-07-03] MEDS ORDERED: SODIUM CHLORIDE 0.9% INJ 10 ML VIAL ONE (15:18)
[2021-07-03] MEDS ORDERED: fentaNYL citrate 100 MCG/2 ML VIAL ONE (15:18)
[2021-07-03] MEDS ORDERED: ePHEDrine sulfate 50 MG/ML AMP ONE (15:18)
[2021-07-03] MEDS ORDERED: BUPIVACAINE 0.25% 30 ML VIAL ONE (15:18)
[2021-07-03] MEDS ORDERED: fentaNYL 2MCG/ML ROPIVACAINE 1.25MG/ML 100 ML BAG EPI ONE (15:19)
[2021-07-03] MEDS ORDERED: diphenhydrAMINE 50 MG/ML VIAL IV PRN (15:29)
[2021-07-03] MEDS ORDERED: NALOXONE HCL 0.4 MG/1 ML VIAL/CARP IV PRN (15:29)
[2021-07-03] MEDS ORDERED: ONDANSETRON INJ 2 MG/ML 2 ML VIAL IV PRN (15:29)
[2021-07-03] MEDS ORDERED: ePHEDrine sulfate 50 MG/ML AMP IV PRN (15:29)
[2021-07-03] MEDS ORDERED: NALOXONE HCL 1 MG in SODIUM CHLORIDE 0.9% 1000ML 1,000 ML IV PRN (15:29)
[2021-07-03] MEDS ORDERED: fentaNYL 2MCG/ML ROPIVACAINE 1.25MG/ML 100 ML BAG EPI PRN (15:29)
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
--- NOTE | 2021-07-03 16:14 | Labor Progress Brief Note ---
Date of Service July 03, 2021 Assessment & Plan Admission and Anticipated Discharge Date Admission Date: July 03, 2021 Physical Exam Genitourinary: Manual OB Exam: + cervical dilation 3 cm, + cervical effacement 80%, + station -2 and + amniotic fluid clear OB Exam Monitor Tracing: + external FHT monitor used, + category I and + normal FHT variability; no external uterine monitor used pocket of fluid ruptured with Amni-hook clear fluid Results & Data ([facility]) Vital Signs (Past 12 Hours) Vital Signs Temp Pulse Resp BP Pulse Ox 07/03/21 16:11 88 97 07/03/21 16:10 90 114/65 07/03/21 16:08 88 115/73 07/03/21 16:06 88 113/67 97 07/03/21 16:04 90 109/65 07/03/21 16:02 88 117/76 07/03/21 16:01 88 98 07/03/21 16:00 93 H 118/79 07/03/21 15:58 96 H 118/74 07/03/21 15:56 89 108/69 97 07/03/21 15:54 88 115/74 07/03/21 15:52 87 117/70 07/03/21 15:51 88 98 07/03/21 15:49 94 H 131/87 07/03/21 15:46 96 H 98 07/03/21 15:41 98 H 97 07/03/21 15:36 96 H 97 07/03/21 15:31 107 H 97 07/03/21 14:01 90 120/84 07/03/21 13:29 36.9 C 20 07/03/21 13:00 88 20 122/86 07/03/21 12:02 36.8 C 84 20 113/76 07/03/21 10:50 86 115/77 07/03/21 09:28 37.1 C 18 07/03/21 07:03 75 110/76 07/03/21 07:02 36.7 C 20 07/03/21 04:18 36.8 C 86 18 121/70
[2021-07-03] MEDS ORDERED: SUPERCREAM 0.870% 15 GM JAR EXT PRN (20:08)
[2021-07-03] MEDS ORDERED: bisacodyL 10 MG SUPP PR PRN (20:08)
[2021-07-03] MEDS ORDERED: FAMOTIDINE 10 MG TABLET PO PRN (20:08)
[2021-07-03] MEDS ORDERED: ACETAMINOPHEN 325 MG TAB PO PRN (20:08)
[2021-07-03] MEDS ORDERED: DIPHTHERIA/TETANUS/PERTUSSIS 0.5 ML SYR/VIAL IM ONE (20:08)
[2021-07-03] MEDS ORDERED: HYDROCORTISONE ACETATE 25 MG SUPP PR PRN (20:08)
[2021-07-03] MEDS ORDERED: BENZOCAINE 20% AER SPR 82.5 GM CAN EXT PRN (20:08)
--- NOTE | 2021-07-03 20:13 | Delivery Summary ---
Vaginal Delivery Summary Date of Service July 03, 2021 Vaginal Delivery Summary Delivery Note live female HELENA over intact perineum with nuchal cord x1 reduced at perineum with delayed cord clamping and Apgars 8/9 weight pending. Cord blood obtained followed by spontaneous delivery of intact placenta. No tears. Bladder emptied with straight cath 200 ml. clear urine. EBL 100 ml. Final sponge and instrument count are correct. Mom and baby stable.
--- NOTE | 2021-07-03 20:25 | Anesthesia Procedure Note ---
Date of Service July 03, 2021 Anesthesia Post Epidural Note Vital Signs Vital Signs: Temp Pulse Resp BP Pulse Ox 37.1 C 84 18 122/72 100 07/03/21 19:03 07/03/21 20:17 07/03/21 19:30 07/03/21 20:17 07/03/21 19:56 Notes Mental Status: alert / awake / arousable and participated in evaluation Patient Amnestic to Procedure: No Nausea / Vomiting: adequately controlled Pain: adequately controlled Airway Patency, RR, SpO2: stable & adequate BP & HR: stable & adequate Hydration State: stable & adequate Neuraxial Anesthesia: was administered and sensory block is resolving Anesthetic Complications: no major complications apparent and Pt Satisfied with anesthetic care Epidural: Removed without complications and With tip intact
[2021-07-03] MEDS ORDERED: DOCUSATE SODIUM 100 MG CAP PO SCH (21:00)
[2021-07-03] MEDS: IBUPROFEN 600 MG TAB PO PRN (22:33)
[2021-07-04] MEDS: IBUPROFEN 600 MG TAB PO PRN ×2 (03:09→12:28)
[2021-07-04 06:59] LABS: Hematocrit (blood only) 32.6 % (37-47); Hemoglobin 10.8 g/dL (12.0-16.0); Mean Corpuscular Hemoglobin 29.2 pg (25-34); Mean Corpuscular Hgb Conc 33.1 g/dL (32-36); Mean Corpuscular Volume 88.1 fL (80-100); Mean Platelet Volume 11.1 fL (7.4-10.4); Platelet Count 149 K/uL (130-400); RDW Coefficient of Variation 14.6 % (11.5-14.5); RDW Standard Deviation 46.8 fL (36.4-46.3); White Blood Count 10.82 K/uL (4.8-10.8)
[2021-07-04] MEDS ORDERED: PRENATAL VITAMIN 1 TAB PO SCH (08:00)
--- NOTE | 2021-07-04 08:07 | Obstetrical Progress Note ---
Date of Service July 04, 2021 Assessment & Plan (1) Normal course: Continue routine PP care Anticipate dicharge home tomorrow AM Subjective Patient doing well, no issues. Ambulating, pain well controlled. Denies heavy vaginal bleeding. PU and fltaus normal. Physical Exam Constitutional WD/WN, vitals as above Respiratory normal respiratory effort, lungs clear to auscultation Cardiovascular RRR, no murmur, no edema Gastrointestinal (Abdomen) normal bowel sounds, soft, nontender, no hepatosplenomegaly Results & Data ([facility]) Vital Signs (Past 12 Hours) Vital Signs Temp Pulse Pulse Resp BP BP 07/04/21 04:25 36.4 C L 65 16 108/72 07/04/21 00:00 36.6 C 74 16 102/65 07/03/21 22:02 89 117/58 L 07/03/21 22:01 20 07/03/21 21:46 84 111/67 07/03/21 21:31 88 18 115/66 07/03/21 21:16 96 H 119/64 07/03/21 21:01 85 18 115/65 07/03/21 20:47 81 20 117/69 07/03/21 20:31 90 18 129/79 07/03/21 20:17 84 20 122/72 Laboratory Results H/H 10.8/32.6%
[2021-07-04] MEDS ORDERED: NON-FORMULARY MEDICATION (Multivitamin tablet) PO SCH (09:00)
[2021-07-04] MEDS ORDERED: NON-FORMULARY MEDICATION (Ferrous Sulfate [Iron] 325 mg (65 mg iron) Tablet) PO SCH (09:00)
[2021-07-04] MEDS ORDERED: bisacodyL 5 MG TABEC PO SCH (20:00)
== END 2021-07-04 21:20 | disposition home or self-care (01) | DRG 807 ==
LOC: OPB 01:41 → 4S1 01:43 → 4S2 22:48
DX: Z88.8 Allergy status to other drugs, medicaments and biological substances; Z91.012 Allergy to eggs; Z91.013 Allergy to seafood; Z37.0 Single live birth; Z91.048 Other nonmedicinal substance allergy status; O42.02 Full-term premature rupture of membranes, onset of labor within 24 hours of rupture; O69.81X0 Labor and delivery complicated by cord around neck, without compression, not applicable or unspecified; Z79.899 Other long term (current) drug therapy; Z88.2 Allergy status to sulfonamides; Z88.5 Allergy status to narcotic agent; Z91.030 Bee allergy status; Z86.32 Personal history of gestational diabetes; Z3A.38 38 weeks gestation of pregnancy